=== PATIENT | male | born 1995 | race Caucasian/White ===

== ENCOUNTER 2024-09-01 04:57 | Inpatient (IN) | payer MEDICAID ==
[~2024-09-01] VITALS: Ht 185.4 cm; Wt 68.0 kg
--- NOTE | 2024-09-01 05:11 | ELECTROCARDIOGRAPH REPORT ---
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
--- NOTE | 2024-09-01 05:16 | Physician Documentation ---
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 Patient was seen at [facility] ER yesterday afternoon after having overdosed on his Adderall. Patient was discharged and then returned back to their ER altered. Patient was psychotic at that time and then catatonic and nonverbal followed by now awake alert and able to answer questions. Patient currently is denying any chest pain. Patient denies any shortness of breath. No fever, no cough, no ab dominal pain, no nausea vomiting diarrhea. Patient's troponin at [facility] were 37 and 43 respectively. Patient was started on a heparin drip, was given aspirin. No nitrates. Review of systems: All systems were reviewed and are negative except for what is indicated in the history of present illness. Past Medical History: NSTEMI, congestive heart failure, methamphetamine abuse Past Surgical History: None Social History: Polysubstance abuse, methamphetamine abuse Medications: Reviewed as documented Nursing Notes Allergies: Reviewed as documented in Nursing Notes Medication Reconciliation Allergies: Coded Allergies: No Known Allergies (Unverified , 09/01/24) Review of Systems All Other Systems at this time: Reviewed and Negative ROS Patient denies any other acute symptoms other than above. All other systems are negative Physical Exam Vital Signs: RN Vital Signs have been reviewed: Yes Pulse Oximetry Reflects: adequate oxygenation Physical Exam General Appearance: No distress, patient tweaking HEENT: Normal OP, moist oral mucosa, PERRL, EOMI Neck: supple, normal ROM, trachea midline Pulmonary: No respiratory distress, CTA, BS equal Cardiac: RRR, no murmur, rub or gallop, GI: nondistended, soft, nontender, normal bowel sounds, no guarding, no rebound Extremities: normal ROM, no swelling, non-tender Skin: intact, dry, warm, no rashes Neuro: Patient is tweaking. AAOx3, speech is clear, no focal motor weakness Psych: normal affect, good eye contact, no apparent hallucination, normal speech Progress Results/Orders Results/Orders Orders - ILEANA,BRENDON R MD Saline Lock (09/01/24 05:07) Monitor (09/01/24 05:07) Oxygen (09/01/24 05:07) Hs Troponin I W Calculations (09/01/24 07:07) Hs Troponin I W Calculations (09/01/24 08:07) Heparin 25,000 Unit/250ml Bag (Heparin 2 (09/01/24 05:10) Heparin 10,000 Unit/Ml 1ml (Heparin 10,0 (09/01/24 05:10) Cbc/Diff (09/02/24 03:00) Cbc/Diff (09/03/24 03:00) Cbc/Diff (09/04/24 03:00) Cbc/Diff (09/05/24 03:00) Cbc/Diff (09/06/24 03:00) Page Hospitalist (09/01/24 05:34) Fill Out Med Reconciliation (09/01/24 05:34) Cardiac Ptt (09/01/24 12:00) Completed Orders - BRENDON TEJEDA MD Cbc/Diff (09/01/24 05:07) MG (09/01/24 05:07) Electrocardiogram (09/01/24 05:07) PBNP (09/01/24 05:07) Hs Troponin I W Calculations (09/01/24 05:07) Pt Inr (09/01/24 05:07) PTT (09/01/24 05:07) Heparin 10,000 Unit/Ml 1ml (Heparin 10,0 (09/01/24 05:10) CMP (09/01/24 05:07) Message To Nursing (09/01/24 05:50) Medications Received in ER Medications (Trade) Dose Ordered Sig/Sharon Route PRN Reason Start Time Stop Time Status Last Admin Dose Admin Heparin Sodium/ Dextrose 250 ml @ 10 mls/hr Q25H PRN IV TO MAINTAIN PTT WITHIN RANGE 09/01/24 05:10 09/01/24 05:53 10 MLS/HR Vital Signs 09/01/24 09/01/24 09/01/24 05:04 05:14 05:43 Temp 98.7 Pulse 96 94 Resp 16 16 B/P (MAP) 158/92 152/95 (114) Pulse Ox 99 98 O2 Flow Rate 0 0 Laboratory Tests Test 09/01/24 05:05 White Blood Count 8.7 Red Blood Count 4.52 L Hemoglobin 13.3 L Hematocrit 39.5 L Mean Corpuscular Volume 87.4 Mean Corpuscular Hemoglobin 29.5 Mean Corpuscular Hemoglobin Concent 33.7 Red Cell Distribution Width 13.4 Platelet Count 243 Mean Platelet Volume 8.2 Neutrophils (%) (Auto) 67.4 Lymphocytes (%) (Auto) 21.2 Monocytes (%) (Auto) 10.8 Eosinophils (%) (Auto) 0 Basophils (%) (Auto) 0.6 Neutrophils # (Auto) 5.9 Lymphocytes # (Auto) 1.8 Monocytes # (Auto) 0.9 Eosinophils # (Auto) 0.0 Basophils # (Auto) 0.1 CBC Comment Prothrombin Time 11.8 INR International Normalized Ratio 1.2 Activated Partial Thromboplast Time 50 H Coagulation Comments Sodium Level 141 Potassium Level 3.6 Chloride Level 105 Carbon Dioxide Level 24.6 Anion Gap 11 Blood Urea Nitrogen 8 Creatinine 0.68 Estimated GFR/1.73 m2 > 90 BUN/Creatinine Ratio 11.8 Glucose Level 93 Calcium Level 8.8 Magnesium Level 1.5 Total Bilirubin 0.8 Aspartate Amino Transf (AST/SGOT) 55 H Alanine Aminotransferase (ALT/SGPT) 42 Alkaline Phosphatase 76 Troponin I High Sensitivity 54 Pro-B-Type Natriuretic Peptide 332 H Total Protein 7.4 Albumin 4.2 Globulin 3.2 Albumin/Globulin Ratio 1.3 Chemistry Comments Medical Decision Making Additional info obtained from: old records Findings Differential diagnosis includes but is not limited to: Amphetamine abuse, polysubstance abuse, NSTEMI, congestive heart failure EKG independent interpretation: Performed at 5:03 a.m.. Normal sinus rhythm, heart rate 93, left axis deviation, normal ST segments Chest x-ray, single view, indication: PENDING Independent interpretation: Laboratory data independent interpretation: PENDING CBC: CMP: Toxicology: Serology: Urinalysis: Emergency department course/medical decision-making: Patient presents with laboratory troponins consistent with a minor NSTEMI. P janell is not showing any ischemic changes on his EKG currently. Patient is asymptomatic except for his tweaking from his recent methamphetamine use. Patient is not suicidal. Patient is afebrile and hemodynamically stable. Heparin drip is restarted after patient arrived. We will recommend admission for continued cardiac workup and echo. Consultation/communications: Care the patient will be transferred to Dr. Blackburn at 615am for admission to the hospitalist. Departure Time of Disposition: 05:16 Disposition: 09 ADMITTED INPATIENT Admission Level of Care: PCU with Tele Impression: Primary Impression: NSTEMI (non-ST elevated myocardial infarction) Additional Impression: Methamphetamine abuse Condition: Fair Education Educated: Patient Educated regarding: diagnosis, treatment Signature Scribe Signature: No scribe Attestation: No scribe BRENDON TEJEDA MD Sep 01, 2024 05:16
[2024-09-01 05:27] LABS: BASOPHILS # (AUTO) 0.1 X10'3 (0-0.2); BASOPHILS % (AUTO) 0.6 % (0-1); EOSINOPHILS % (AUTO) 0 % (0-6); HEMATOCRIT 39.5 % (42.0-52.0); HEMOGLOBIN 13.3 g/dl (14.0-17.9); LYMPHOCYTES # (AUTO) 1.8 X10'3 (1.1-4.8); LYMPHOCYTES % (AUTO) 21.2 % (21-51); MEAN CORPUSCULAR HEMOGLOBIN 29.5 PG (27.0-31.0); MEAN CORPUSCULAR HGB CONC 33.7 g/dL (33.0-36.5); MEAN CORPUSCULAR VOLUME 87.4 FL (78-98); MEAN PLATELET VOLUME 8.2 FL (7.4-10.4); MONOCYTES # (AUTO) 0.9 X10'3 (0-0.9); MONOCYTES % (AUTO) 10.8 % (2-12); NEUTROPHILS # (AUTO) 5.9 X10'3 (1.8-7.7); NEUTROPHILS % (AUTO) 67.4 % (42-75); PLATELET COUNT 243 X10'3 (140-440); RED BLOOD COUNT 4.52 X10'6 (4.70-6.10); RED CELL DISTRIBUTION WIDTH 13.4 % (11.5-14.5); WHITE BLOOD COUNT 8.7 X10'3 (4.5-11.0)
[2024-09-01 05:39] LABS: APTT 50 SECONDS (22-32); INR 1.2 INR; PROTHROMBIN TIME 11.8 SECONDS (9.0-12.0)
[2024-09-01 05:43] LABS: ALANINE AMINOTRANSFERASE 42 U/L (12-78); ALBUMIN 4.2 G/DL (3.4-5.0); ALBUMIN/GLOBULIN RATIO 1.3 (1.1-1.5); ALKALINE PHOSPHATASE 76 IU/L (46-116); ANION GAP 11 (8-16); ASPARTATE AMINO TRANSFERASE 55 U/L (10-37); BILIRUBIN,TOTAL 0.8 MG/DL (0.1-1.0); BLOOD UREA NITROGEN 8 MG/DL (7-18); BUN/CREATININE RATIO 11.8 (10.0-20.0); CALCIUM 8.8 MG/DL (8.5-10.1); CHLORIDE 105 MMOL/L (99-107); CREATININE 0.68 MG/DL (0.60-1.10); GLUCOSE 93 MG/DL (70-104); POTASSIUM 3.6 MMOL/L (3.5-5.1); SODIUM 141 MMOL/L (135-145); TOTAL CARBON DIOXIDE 24.6 MMOL/L (24-32); TOTAL PROTEIN 7.4 G/DL (6.4-8.2); eCRCL 156 ML/MIN; eGFR > 90 ML/MIN
[2024-09-01] MEDS: heparin 10,000 units/1 ML INJ IV ONE (05:44)
[2024-09-01 05:49] LABS: MAGNESIUM 1.5 MG/DL (1.5-2.4); PRO BRAIN NATRIURETIC PEPTIDE 332 PG/ML (0-125)
[2024-09-01] MEDS: heparin 25,000 UNIT/250ml bag 250 ML IV PRN (05:53)
[2024-09-01] MEDS: MESSAGE TO NURSING IV ONE ×3 (05:59→22:19)
[2024-09-01] MEDS ORDERED: ondansetron/PF 4mg/2ml inj IV PRN (07:10)
[2024-09-01] MEDS ORDERED: magnesium sulf-water 2g/50mL 50 ML IV PRN (07:10)
[2024-09-01] MEDS ORDERED: acetaminophen 325mg tablet PO PRN ×2 (07:10)
[2024-09-01] MEDS ORDERED: potassium Cl 20 mEq SR tablet PO PRN ×2 (07:10)
[2024-09-01] MEDS ORDERED: magnesium Cl slow-release 64mg tablet PO PRN (07:10)
[2024-09-01] MEDS ORDERED: morphine 2 MG/ML inj. syringe IV PRN ×2 (07:10)
[2024-09-01] MEDS ORDERED: magnesium sulf-water 4G/100mL 100 ML IV PRN (07:10)
[2024-09-01] MEDS ORDERED: HYDROcodone/acetaminophen 5mg/325mg tablet PO PRN (07:10)
[2024-09-01] MEDS ORDERED: potassium Cl 40MEQ/1/2NS 520ml 520 ML IV PRN (07:10)
[2024-09-01] MEDS ORDERED: HYDROcodone/acetaminophen 10/325mg tab PO PRN (07:10)
[2024-09-01] MEDS ORDERED: heparin 10,000 units/1 ML INJ IV PRN (07:15)
[2024-09-01] MEDS ORDERED: heparin 25,000 UNIT/250ml bag 250 ML IV PRN (07:15)
[2024-09-01] MEDS: normal saline 1000ml 1,000 ML IV SCH (08:29)
[2024-09-01] MEDS ORDERED: KETO120S5 TOP (09:22)
[2024-09-01] MEDS ORDERED: CLOB25SO14 TOP (09:22)
[2024-09-01] MEDS ORDERED: PROP10TA10 PO (09:22)
[2024-09-01] MEDS ORDERED: CALC60OI4 TOP (09:23)
[2024-09-01 10:00] VITALS: BP 109/68; PULSE 78; RESP 16; TEMP 97.4; O2SAT 98
[2024-09-01 14:06] LABS: URINE AMPHETAMINE SCREEN POSITIVE (Neg); URINE BARBITUATE SCREEN NEGATIVE (Neg); URINE BENZODIAZEPINES SCREEN POSITIVE (Neg); URINE CANNABINOID SCREEN POSITIVE (Neg); URINE COCAINE SCREEN NEGATIVE (Neg); URINE METHADONE SCREEN NEGATIVE (Neg); URINE OPIATE SCREEN NEGATIVE (Neg); URINE PHENCYCLIDINE SCREEN NEGATIVE (Neg)
[2024-09-01] MEDS: nicotine 14mg patch - 24hr TD SCH (14:31)
[2024-09-01 15:00] VITALS: BP 99/62; PULSE 82; RESP 18; TEMP 98; O2SAT 98
[2024-09-01] MEDS ORDERED: iohexol 300mg/ml 100ml inj. ONE (17:09)
[2024-09-01 18:00] VITALS: BP 103/66; PULSE 78; RESP 18; TEMP 98.7; O2SAT 95
--- NOTE | 2024-09-01 18:07 | RADIOLOGY REPORT ---
Procedure: CT CT CHEST W/ IV CONTRAST 09/01/2024 05:29 PM History: abnormal echo findings Comparison: Chest x-ray 09/01/2024 Technique: After the uneventful administration of contrast intravenously, CT imaging was performed th rough the chest. Coronal and sagittal reformations were performed by the technologist. 3D image postprocessing was performed on a dedicated workstation and images were used for interpretat ion and reporting. Radiation Dose : CT Dose: CTDI volume is 8.0 mGy. Dose-length product is 325 mGy*cm CONTRAST: 100 mL omni 300 Findings: Lower neck: Normal thyroid. Lungs: No focal consolidation. Heart/Vascular Structures: Normal heart size. No pericardial effusion. There is mild aortic root dila tion which measures 4.9 cm when measured perpendicular to the axis of the aorta on the coronal view ( series 601, image 33). No central pulmonary arterial filling defects. Lymph Nodes: No adenopathy Pleura: No pleural effusion or significant pneumothorax. Musculoskeletal: No acute osseous abnormality. Minimal multilevel degenerative disc change. Soft tissues: Normal. Upper abdomen: There is a 1.1 cm left superior renal pole hypodensity that attenuates at 13 Hounsfiel d units, consistent with a cyst. IMPRESSION: 1. No evidence of acute intrathoracic abnormality. 2. Mild aortic root dilatation.
--- NOTE | 2024-09-01 18:37 | CARDIOLOGY REPORT ---
APPROVED REPORT EXAM: Comprehensive 2D, Doppler, and color-flow Echocardiogram. Patient Location: 3019 [address] Heart Rate: 65 bpm Rhythm: SINUS Indications ANGINA METH USE CONGESTIVE HEART FAILURE NSTEMI Manager Balance: NONE Previous echo: NONE 2D Dimensions RVDd 4.1 cm IVSd 1.2 (0.7-1.1cm) LVDd 4.3 cm PWd 0.8 (0.7-1.1cm) IVSs 1.6 (0.8-1.2cm) LVDs 2.6 (2.5-4.0cm) PWs 1.2 (0.8-1.2cm) LVOT Diameter 2.25 (1.8-2.4cm) LVEF(%) 70.8 (>50%) Ao Asc Diam.3.20 cm IVC 17.81 mmFS (%) 39.9 % SV 58.1 ml CO 3.4 L/min M-Mode Dimensions Left Atrium(MM) 3.60 (2.5-4.0cm) Right Atrium (MM) 4.90 cm Aortic Root 3.59 (2.2-3.7cm) Aortic Cusp Exc 2.40 (1.5-2.0cm) MV EPSS 0.5 (<0.5cm) Aortic Valve AoV Peak Davian. 128.3 cm/s AoV VTI 23.8 cm AO Peak GR. 6.6 mmHg AO Mean GR. 4 mmHg LVOT VTI 22.89 cm LVOT Peak Davian. 116.5 cm/s DOROTHY(VTI)/BSA 3.82 cm2/m2 DOROTHY (VTI) 3.82 cm2 Mitral Valve MV E Velocity 62.8 cm/s MV Peak Gr. 2 mmHg MV DECEL TIME 272 ms MV A Velocity 58.7 cm/s MV PHT 68 ms E/A Ratio 1.1 MVA (PHT) 3.24 cm2 MV VMax75.4 cm/s TDI Lateral E' P. V9.04 cm/s E/Lateral E' 6.9 Tricuspid Valve TR P. Velocity 201 cm/s RAP ESTIMATE 10 mmHg TR Peak Gr. 16 mmHg RVSP 26 mmHg Pulmonary Vein S1 Velocity 53.3 cm/s D2 Velocity 54.2 cm/s PVa Eysdvomr02.5 cm/s PVa [id number] msec LEFT VENTRICLE Normal LV size and function. Mild concentric hypertrophy. LVEF is 70%. RIGHT VENTRICLE RV is moderately dilated in size with normal function. ATRIA The left atrium size is normal. Right atrium is severely dilated. AORTIC VALVE Trileaflet AV appears sclerotic without stenosis. Trace insufficiency. MITRAL VALVE Mild MV annular calcification without stenosis. Trace regurgitation. TRICUSPID VALVE TV appears structurally normal with trace regurgitation. PULMONIC VALVE Normal PV without stenosis. GREAT VESSELS The aortic root is normal in size. ? Intimal tear vs dissection vs artifact. Visualized images 1-4, 1 5 reccomend clinical correlation. IVC is normal in size and collapses greater than 50% with inspirati on. PERICARDIUM Normal pericardium. No effusion. Incidental finding: comet tail artifact visualized in liver/gallblad adeel area on subcostal images. Reccomend clinical corelation if indicated. Other Information Study Quality: Adequate Conclusion Normal LV size and function. Mild concentric hypertrophy. LVEF is 70%. RV is moderately dilated in size with normal function. The left atrium size is normal. Right atrium is severely dilated. Trileaflet AV appears sclerotic without stenosis. Trace insufficiency. Mild MV annular calcification without stenosis. Trace regurgitation. TV appears structurally normal with trace regurgitation. The aortic root is normal in size. ? Intimal tear vs dissection vs artifact. Visualized images 1-4, 1 5 reccomend clinical correlation. Normal pericardium. No effusion. Incidental finding: comet tail artifact visualized in liver/gallbla dder area on subcostal images. Reccomend clinical corelation if indicated.
--- NOTE | 2024-09-01 18:51 | HISTORY AND PHYSICAL ---
History & Physical Providers to CC ~ History of Present Illness Reason for Admit\Complaint: Elevated troponin levels History of Present Illness Patient is a 29-year-old man with a history of congestive heart failure and NSTEMI secondary to methamphetamine abuse. Patient was seen at [facility] ER yesterday afternoon after having overdosed on his Adderall. Patient was discharged and then returned back to their ER altered. Patient's troponin at [facility] were 37 and 43 respectively. Patient was started on a heparin drip, was given aspirin. No nitrates. When I saw the patient in his room he was nonverbal and then in few minutes he was alert awake and hyperactive. 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 Patient denies any shortness of breath. No fever, no cough, no abdominal pain, no nausea vomiting diarrhea. Allergies: Coded Allergies: No Known Allergies (Unverified , 09/01/24) Home Medications Home Medications Active Reported Calcipotriene 0.005 % Oint...g. TOP HS Ketoconazole 2 % Shampoo TOP DAILY PRN Clobetasol Propionate 0.05 % Solution TOP BID Inderal* (Propranolol HCl) 10 Mg Tablet 1 Tab PO BID Past Medical History Past Medical History history of congestive heart failure and NSTEMI secondary to methamphetamine abuse. Past Surgical History Surgical History Comment None Family History Family History: Patient reports no known family medical history. Past Social History Social History Comment Polysubstance abuse, methamphetamine abuse ROS ROS All systems were reviewed and are negative except for what is indicated in the history of present illness. Exam Vitals: Vital Signs Date Time Temp Pulse Resp B/P (MAP) Pulse Ox O2 Delivery O2 Flow Rate FiO2 09/01/24 15:00 98.0 82 18 99/62 (74) 98 Room Air 09/01/24 07:00 0 General: General-patient not in any acute distress, alert awake and hyperactive HEENT-atraumatic normocephalic, neck supple without elevated JVD, no thyromegaly or carotid bruit. No lymphadenopathy bilaterally. Eyes-no icterus or pallor seen in eyes Chest-clear to auscultation bilaterally, breathing nonlabored no tachypnea, no wheezing, no crepitation, no crackles. Heart-S1-S2 normal, regular heart rate no murmur Abdomen bowel sounds positive on auscultation, soft nondistended nontender no guarding, no rigidity Skin no active skin rash Neurology-grossly intact, nonfocal alert awake oriented Extremity- no pedal edema able to move all 4 extremities Psychiatry - patient is not confused or agitated cooperated during physical examination Diagnostic Data Last Recorded Lab Results: 09/01/24 0505 09/01/24 0505 Diagnostic Data: Laboratory Tests Test 09/01/24 05:05 09/01/24 11:47 Prothrombin Time 11.8 SECONDS (9.0-12.0) INR International Normalized Ratio 1.2 INR Activated Partial Thromboplast Time 50 SECONDS (22-32) H APTT (Heparin Protocol) 45 SECONDS (45-60) Coagulation Comments Additional Plan Patient is a 29-year-old man with a history of congestive heart failure and NSTEMI secondary to methamphetamine abuse. Patient was seen at [facility] ER yesterday afternoon after having overdosed on his Adderall. Patient was discharged and then returned back to their ER altered. Patient's troponin at [facility] were 37 and 43 respectively. Patient was transferred to [facility] for higher level of care for elevated troponins. # NSTEMI. Patient is not showing any ischemic changes on his EKG currently. Heparin drip to continue , further cardiac workup and echo ordered. # poly substance abuse secondary to methamphetamine- Patient is asymptomatic except for his recent methamphetamine use. Patient is not suicidal. Patient is afebrile and hemodynamically stable. Patient's current condition is guarded we will continue to follow patient in a.m. we will do home medication reconciliation once updated in electronic record system. Patient is full code by default Date of Service: Sep 01, 2024 Billing Provider: STEVIE DIAZ MD Common Visit Codes: [id number] INP/OBS CARE (HIGH) STEVIE DIAZ MD Sep 01, 2024 18:51
[2024-09-01 20:00] VITALS: RESP 18; O2SAT 90
[2024-09-01 22:00] VITALS: BP 114/77; PULSE 57; RESP 20; TEMP 97.2; O2SAT 100
[2024-09-01] MEDS: heparin 10,000 units/1 ML INJ IV PRN (22:26)
[2024-09-02 02:00] VITALS: PULSE 63; RESP 18; TEMP 97; O2SAT 90
[2024-09-02 06:00] VITALS: BP 111/67; PULSE 59; RESP 16; TEMP 98.3; O2SAT 100
[2024-09-02 06:02] LABS: BASOPHILS % (AUTO) 0.7 % (0-1); EOSINOPHILS # (AUTO) 0.1 X10'3 (0-0.9); HEMATOCRIT 41.2 % (42.0-52.0); HEMOGLOBIN 13.7 g/dl (14.0-17.9); LYMPHOCYTES # (AUTO) 1.9 X10'3 (1.1-4.8); LYMPHOCYTES % (AUTO) 35.7 % (21-51); MEAN CORPUSCULAR HEMOGLOBIN 29.5 PG (27.0-31.0); MEAN CORPUSCULAR HGB CONC 33.4 g/dL (33.0-36.5); MEAN CORPUSCULAR VOLUME 88.5 FL (78-98); MEAN PLATELET VOLUME 8.3 FL (7.4-10.4); MONOCYTES # (AUTO) 0.7 X10'3 (0-0.9); MONOCYTES % (AUTO) 12.3 % (2-12); NEUTROPHILS # (AUTO) 2.7 X10'3 (1.8-7.7); NEUTROPHILS % (AUTO) 50.3 % (42-75); PLATELET COUNT 214 X10'3 (140-440); RED BLOOD COUNT 4.65 X10'6 (4.70-6.10); RED CELL DISTRIBUTION WIDTH 13.3 % (11.5-14.5); WHITE BLOOD COUNT 5.3 X10'3 (4.5-11.0)
[2024-09-02] MEDS: MESSAGE TO NURSING IV ONE (06:18)
[2024-09-02 06:40] LABS: ALANINE AMINOTRANSFERASE 51 U/L (12-78); ALBUMIN/GLOBULIN RATIO 1.2 (1.1-1.5); ALKALINE PHOSPHATASE 70 IU/L (46-116); ANION GAP 12 (8-16); ASPARTATE AMINO TRANSFERASE 57 U/L (10-37); BILIRUBIN,TOTAL 0.7 MG/DL (0.1-1.0); BLOOD UREA NITROGEN 16 MG/DL (7-18); BUN/CREATININE RATIO 25.4 (10.0-20.0); CALCIUM 8.9 MG/DL (8.5-10.1); CHLORIDE 105 MMOL/L (99-107); CREATININE 0.63 MG/DL (0.60-1.10); GLUCOSE 79 MG/DL (70-104); POTASSIUM 3.7 MMOL/L (3.5-5.1); SODIUM 142 MMOL/L (135-145); TOTAL CARBON DIOXIDE 25.1 MMOL/L (24-32); TOTAL PROTEIN 7.3 G/DL (6.4-8.2); eCRCL 168 ML/MIN; eGFR > 90 ML/MIN
[2024-09-02 08:00] VITALS: RESP 16; O2SAT 100
[2024-09-02] MEDS ORDERED: NALT50TA5 PO (10:45)
[2024-09-02] MEDS ORDERED: NICO-631 TOP (10:45)
[2024-09-02 11:00] VITALS: BP 136/73; PULSE 68; RESP 15; TEMP 98.9; O2SAT 97
--- NOTE | 2024-09-02 17:27 | DISCHARGE SUMMARY-Residence ---
Discharge Summary Providers to CC Resident Creating Document: JOHN YEHJUANCHO, RES ~ Discharge Summary Admission Diagnosis: NSTEMI , h/o substance , h/o CHF Hospital Course DATE OF ADMISSION: 09/01/2024 DATE OF DISCHARGE: 09/02/2024 Discharge Diagnosis\Comment: NSTEMI-ruled out ACS-ruled out Type 2 NM secondary to amphetamine use Substance use disorder Operations\Procedures: None Consultants: None Complications: None Condition on DC: Stable New Medications: Naltrexone Hcl (Naltrexone Hcl) 50 Mg Tablet 1 TAB PO DAILY for 30 Days, #30 TAB 0 Refills Nicotine 14 MG Patch* (Habitrol 14 MG Patch*) 1 Each Patch.td24 1 PATCH TOP DAILY for smoking cessation for 28 Days, #28 PATCH Continued Medications: Calcipotriene (Calcipotriene) 0.005 % Oint...g. TOP HS Clobetasol Propionate (Clobetasol Propionate) 0.05 % Solution TOP BID Ketoconazole (Ketoconazole) 2 % Shampoo TOP DAILY PRN for itch Propranolol Hcl* (Inderal*) 10 Mg Tablet 1 TAB PO BID Discharge Summary: HPI: Patient is a 29-year-old man with a history of congestive heart failure and NSTEMI secondary to methamphetamine abuse. Patient was seen at [facility] ER yesterday afternoon after having overdosed on his Adderall. Patient was discharged and then returned back to their ER altered. Patient's troponin at [facility] were 37 and 43 respectively. Patient was started on a heparin drip, was given aspirin. No nitrates. When I saw the patient in his room he was nonverbal and then in few minutes he was alert awake and hyperactive. 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 Patient denies any shortness of breath. No fever, no cough, no abdominal pain, no nausea vomiting diarrhea. Hospital course: 29-year-old male patient came to the hospital with concern of NSTEMI. Troponins were trended down, the patient was transferred from [facility] ER on 2024 after having an overdose of Adderall. Troponin levels there were 37-43 respectively, the patient was started on heparin drip and transferred to [facility] due to concern of NSTEMI. Troponin levels were trended all of them stain within reference range. Heparin drip was stopped. Substance use navigator and social services director were consulted who states that the patient wants to receive helped in order to stop recreational drugs. Recommended to discharge the patient in naltrexone in due that the patient accepts help was done by home health care social worker resources. The patient remained hemodynamically stable, completely recovered in his mental status, oriented to place person and time. The patient will be discharged. Discharge course: The patient remained hemodynamically stable. The patient will be discharged with the following instructions: Come back to the Emergency department or call 911 if severe chest pain, shortness of breath, palpipations is evidenced. Take naltrexone 1 tablet of 30 mg daily. Please follow up with your primary care physician in [place] for further evaluation of liver enzymes within the 15 days. You will need CMP within 2 weeks with your primary care physician. Strong recommendation to stop drinking and recreational drugs. Apply nicotine patch daily. Physical exam: General: Well alert, well oriented, not confused, not agitated, not in acute distress, well cooperated during the physical. HEENT: Conjunctive are pink, sclerae clear, no icterus, pupil is equal in both sides, reactive to light, no ear discharge, no pharyngeal erythema or an edema. Neck: Supple, no JVD, no lymphadenopathy and thyromegaly. Chest: Equal air entry on both lungs, no additional sounds no rhonchi no wheezing at the moment. Cardiovascular: S1-S2 regular sinus rhythm and, regular rate, no gallops, no rubs, no murmurs Abdomen: No visible peristalsis, Bowel sounds present on auscultation, soft, nontender, no guarding, no rigidity Extremities: No obvious deformities, no pitting edema bilaterally, capillary refill intact, peripheral pulsations are intact on both sides Central Nervous System: No focal neurological deficits, no motor or sensory weakness in all 4 extremities, could move all 4 extremities, 2+ deep tendon reflexes, negative Babinski. Musculoskeletal: No joint swelling, deformities, inflammations, and no scoliosis and back tenderness Skin: Warm and dry. Vital Signs Date Time Temp Pulse Resp B/P (MAP) Pulse Ox O2 Delivery O2 Flow Rate FiO2 09/02/24 11:00 98.9 68 15 136/73 (94) 97 Room Air 09/01/24 07:00 0 Laboratory Tests Test 09/01/24 05:05 09/01/24 06:56 09/01/24 08:35 09/01/24 11:47 White Blood Count 8.7 X10'3 Red Blood Count 4.52 X10'6 Hemoglobin 13.3 g/dl Hematocrit 39.5 % Mean Corpuscular Volume 87.4 FL Mean Corpuscular Hemoglobin 29.5 PG Mean Corpuscular Hemoglobin Concent 33.7 g/dL Red Cell Distribution Width 13.4 % Platelet Count 243 X10'3 Mean Platelet Volume 8.2 FL Neutrophils (%) (Auto) 67.4 % Lymphocytes (%) (Auto) 21.2 % Monocytes (%) (Auto) 10.8 % Eosinophils (%) (Auto) 0 % Basophils (%) (Auto) 0.6 % Neutrophils # (Auto) 5.9 X10'3 Lymphocytes # (Auto) 1.8 X10'3 Monocytes # (Auto) 0.9 X10'3 Eosinophils # (Auto) 0.0 X10'3 Basophils # (Auto) 0.1 X10'3 CBC Comment Prothrombin Time 11.8 SECONDS INR International Normalized Ratio 1.2 INR Activated Partial Thromboplast Time 50 SECONDS Coagulation Comments Sodium Level 141 MMOL/L Potassium Level 3.6 MMOL/L Chloride Level 105 MMOL/L Carbon Dioxide Level 24.6 MMOL/L Anion Gap 11 Blood Urea Nitrogen 8 MG/DL Creatinine 0.68 MG/DL Estimated GFR/1.73 m2 > 90 ML/MIN BUN/Creatinine Ratio 11.8 Glucose Level 93 MG/DL Calcium Level 8.8 MG/DL Magnesium Level 1.5 MG/DL Total Bilirubin 0.8 MG/DL Aspartate Amino Transf (AST/SGOT) 55 U/L Alanine Aminotransferase (ALT/SGPT) 42 U/L Alkaline Phosphatase 76 IU/L Troponin I High Sensitivity 54 ng/L 49 ng/L 41 ng/L Pro-B-Type Natriuretic Peptide 332 PG/ML Total Protein 7.4 G/DL Albumin 4.2 G/DL Globulin 3.2 G/DL Albumin/Globulin Ratio 1.3 Chemistry Comments Troponin I High Sens Percent Delta 9 % 16 % Troponin I Hi Sens Absolute Change -5 ng/L -8 ng/L APTT (Heparin Protocol) 45 SECONDS Test 09/01/24 13:08 09/01/24 21:15 09/02/24 05:00 09/02/24 05:31 Urine Opiates Screen Negative Urine Methadone Screen Negative Urine Fentanyl Screen Negative Urine Barbiturates Screen Negative Urine Phencyclidine Screen Negative Urine Amphetamines Screen Positive Urine Benzodiazepines Screen Positive Urine Cocaine Screen Negative Urine Cannabinoids Screen Positive Drug Screen Comment APTT (Heparin Protocol) 34 SECONDS 63 SECONDS Coagulation Comments White Blood Count 5.3 X10'3 Red Blood Count 4.65 X10'6 Hemoglobin 13.7 g/dl Hematocrit 41.2 % Mean Corpuscular Volume 88.5 FL Mean Corpuscular Hemoglobin 29.5 PG Mean Corpuscular Hemoglobin Concent 33.4 g/dL Red Cell Distribution Width 13.3 % Platelet Count 214 X10'3 Mean Platelet Volume 8.3 FL Neutrophils (%) (Auto) 50.3 % Lymphocytes (%) (Auto) 35.7 % Monocytes (%) (Auto) 12.3 % Eosinophils (%) (Auto) 1.0 % Basophils (%) (Auto) 0.7 % Neutrophils # (Auto) 2.7 X10'3 Lymphocytes # (Auto) 1.9 X10'3 Monocytes # (Auto) 0.7 X10'3 Eosinophils # (Auto) 0.1 X10'3 Basophils # (Auto) 0.0 X10'3 CBC Comment Sodium Level 142 MMOL/L Potassium Level 3.7 MMOL/L Chloride Level 105 MMOL/L Carbon Dioxide Level 25.1 MMOL/L Anion Gap 12 Blood Urea Nitrogen 16 MG/DL Creatinine 0.63 MG/DL Estimated GFR/1.73 m2 > 90 ML/MIN BUN/Creatinine Ratio 25.4 Glucose Level 79 MG/DL Calcium Level 8.9 MG/DL Total Bilirubin 0.7 MG/DL Aspartate Amino Transf (AST/SGOT) 57 U/L Alanine Aminotransferase (ALT/SGPT) 51 U/L Alkaline Phosphatase 70 IU/L Total Protein 7.3 G/DL Albumin 4.0 G/DL Globulin 3.3 G/DL Albumin/Globulin Ratio 1.2 Chemistry Comments *Problems/Diagnosis: (1) Methamphetamine abuse Status: Chronic (2) Type 2 NM (myocardial infarction) Status: Acute Total Time Spent on D/C: > 30 Minutes Date of Service: Sep 02, 2024 Billing Provider: STEVIE DIAZ MD Common Visit Codes: [id number] DISCH DAY >30min JUANCHO CARVER, RES Sep 02, 2024 17:24 STEVIE DIAZ MD Sep 02, 2024 17:45
--- NOTE | 2024-09-03 08:21 | RADIOLOGY REPORT ---
EXAM: DI CHEST,SINGLE VIEW HISTORY: CP COMPARISON: None TECHNIQUE: Portable AP view of the chest was performed. FINDINGS: No pneumothorax, consolidative infiltrates, or pulmonary edema. The heart is not enlarged. IMPRESSION: No acute intrathoracic process. -MARIE
== END 2024-09-02 11:51 | disposition home or self-care (01) | DRG 812 ==
LOC: ER 04:58 → ED HOLD 07:13 → PCU 3S 09:50
PROVIDERS: ADMIT Internal Medicine; ATTEND Internal Medicine
PROC: BW241ZZ Computerized Tomography (CT Scan) of Chest and Abdomen using Low Osmolar Contrast (ICD-10-PCS; principal; 2024-09-01)
DX: T43.621A Poisoning by amphetamines, accidental (unintentional), initial encounter (principal); I21.A1 Myocardial infarction type 2; I42.9 Cardiomyopathy, unspecified; I50.9 Heart failure, unspecified; F15.10 Other stimulant abuse, uncomplicated; I25.2 Old myocardial infarction; Y92.89 Other specified places as the place of occurrence of the external cause
CPT/HCPCS: 36415; 71045; 71260; 80053; 80305; 83735; 83880; 84484; 85025; 85610; 85730; 87081; 93005; 93306; 96361; 96374; 96375; 99285; A6222; A6223; G0378; J1644; J7030; Q9967